=== PATIENT | female | born 1990 | race American Indian/Alaskan Native ===

== ENCOUNTER 2018-06-01 06:29 | Inpatient (IN) | payer MEDICAID ==
[2018-06-01] MEDS ORDERED: PITOCin/NS 20 UNIT/1000ML DRIP 20,000 MILLIUNITS/1,000 ML BAG IV ONE (06:59)
[2018-06-01] MEDS ORDERED: XYLOCAINE 2% INFILTRATI ONE (07:05)
--- NOTE | 2018-06-01 07:22 | History and Physical Report ---
History of Present Illness Date of examination: 06/01/18 Date of admission: 06/01/18 06:29 Chief complaint: Previous C Section in labor History of present illness: Pt is a 27yo BF EDC 06/17/18; EGA 37 5/7 weeks presents to L&D complaining of RUC's q 3-4 mins. She was scheduled for a Repeat C Section with BTL on 06/03/18 but she is currently 10/100/V/+2 and ready to deliver. She received care at [facility] since 11 weeks and course si gnificant for Chronic hypertension controlled with Procardia 30mg QD. records are available and GBS is Negative. Past History Past Medical History: asthma, hypertension (on Procardia 30mg QD) Past Surgical History: section (x2) LEAN SIX SIGMA BLACK BELT History: chlamydia Family/Genetic History: cancer, sickle cell/trait Social history: no significant social history, single - Obstetrical History Expected Date of Delivery: 06/17/18 Actual Gestation: 37 Week(s) 5 Day(s) : 2 Medications and Allergies Allergies Allergy/AdvReac Type Severity Reaction Status Date / Time No Known Allergies Allergy Unverified 06/25/15 16:19 Home Medications Medication Instructions Recorded Confirmed Last Taken Type No Known Home Medications [No 06/25/15 06/25/15 Unknown History Reported Home Medications] Review of Systems All systems: negative - Physical Exam Breasts: Positive: deferred Cardiovascular: Regular rate Lungs: Positive: Clear to auscultation Abdomen: Positive: normal appearance Genitourinary (Female): Positive: normal external genitalia Vagina: Positive: normal moisture Uterus: Positive: enlarged Extremities: Positive: normal - Obstetrical FHR: category 1 Uterine Contraction Monitor Mode: External Cervical Dilatation: 10 Cervical Effacement Percentage: 100 station: +2 Uterine Contraction Pattern: Regular Uterine Tone Measurement Phase: Contraction Uterine Contraction Intensity: Strong/Firm Results All other labs normal. Assessment and Plan - Patient Problems (1) 37 weeks gestation of Onset Date: 06/01/18 Current Visit: Yes Status: Acute Plan to address problem: A: IUP @ 37 5/7 weeks in labor Previous C Section x 2 Chronic hypertension P: Admit to L&D for expectant vaginal delivery (TOLAC) (2) Previous delivery affecting Onset Date: 06/01/18 Current Visit: Yes Status: Acute (3) Hypertension affecting in third trimester Onset Date: 06/01/18 Current Visit: Yes Status: Chronic
--- NOTE | 2018-06-01 07:40 | Procedure Note ---
OB Delivery Note - Delivery Date of Delivery: 06/01/18 Surgeon: MARJORIE BLACK Estimated blood loss: 200cc - Vaginal Delivery presentation: vertex Delivery position: OA Intrapartum events: precipitous labor- <3hr Delivery induction: none Delivery augmentation: rupture of membranes Delivery monitor: external FHT, external uterine Route of delivery: Delivery placenta: spontaneous Delivery cord: 3 umbilical vessels Episiotomy: none Delivery laceration: 2nd degree (perineal) Delivery repair: vicryl Anesthesia: local Delivery comments: Infant delivered OA and placed on Mom's chest for [id number] bonding and delayed cord clamping, cut by Dad - Infant A at 1 minute: 8 at 5 minutes: 9 Infant Gender: Female (2451gms)
[2018-06-01] MEDS ORDERED: PITOCin/NS 30 UNIT/500ML 30 UNITS/500 ML BAG IV SCH (08:00)
[2018-06-01 08:09] LABS: Hematocrit 31.8 % (30.3-42.9); Hemoglobin 9.8 gm/dl (10.1-14.3); Mean Corpuscular HGB Conc 31 % (30-34); Platelet Count 351 K/mm3 (140-440); Red Blood Count 5.55 M/mm3 (3.65-5.03)
[2018-06-01 08:14] LABS: Mean Corpuscular Volume 57 fl (79-97); Red Cell Distribution Width 22.4 % (13.2-15.2)
[2018-06-01] MEDS ORDERED: LACTATED RINGERS 1,000 ML IV SCH (09:00)
[2018-06-01] MEDS ORDERED: BRETHINE SUB-Q PRN (09:00)
[2018-06-01] MEDS ORDERED: NORCO 5/325 PO PRN (09:00)
[2018-06-01] MEDS ORDERED: PHENERGAN PO PRN (09:00)
[2018-06-01] MEDS ORDERED: BRETHINE IVP PRN (09:00)
[2018-06-01] MEDS ORDERED: MINERAL OIL PO PRN (09:00)
[2018-06-01] MEDS ORDERED: PHENERGAN PR PRN (09:00)
[2018-06-01] MEDS ORDERED: ZOFRAN IV PRN (09:00)
[2018-06-01] MEDS ORDERED: PITOCin/NS 20 UNIT/1000ML DRIP 20 UNITS/1,000 ML BAG IV SCH (09:00)
[2018-06-01] MEDS ORDERED: LANSINOH TP PRN (09:00)
[2018-06-01] MEDS ORDERED: TYLENOL PO PRN (09:00)
[2018-06-01] MEDS ORDERED: SODIUM CHLORIDE FLUSH SYRINGE 10 ML IV PRN (09:00)
[2018-06-01] MEDS ORDERED: XYLOCAINE 2% INFILTRATI NR (09:00)
[2018-06-01] MEDS ORDERED: BENADRYL PO PRN (09:00)
[2018-06-01] MEDS ORDERED: TUCKS PAD TP PRN (09:00)
[2018-06-01] MEDS ORDERED: DULCOLAX PR PRN (10:00)
[2018-06-01] MEDS ORDERED: PRENATAL VITAMIN PO SCH (10:00)
[2018-06-01] MEDS: IBUPROFEN PO SCH ×2 (12:29→17:45)
[2018-06-01] MEDS: COLACE PO SCH ×2 (12:29→22:14)
[2018-06-01] MEDS: FEOSOL PO SCH ×2 (12:29→22:13)
[2018-06-01] MEDS: PROCARDIA XL PO SCH (17:02)
[2018-06-01 20:12] LABS: Hematocrit 29.5 % (30.3-42.9); Hemoglobin 9.4 gm/dl (10.1-14.3)
[2018-06-01] MEDS ORDERED: MILK OF MAGNESIA PO PRN (22:00)
[2018-06-02] MEDS: IBUPROFEN PO SCH (00:08)
[2018-06-02] MEDS ORDERED: BOOSTRIX IM ONE (06:00)
[2018-06-02] MEDS: MOTRIN PO SCH ×2 (06:02→12:20)
[2018-06-02] MEDS ORDERED: M-M-R II VACCINE SUB-Q ONE (09:00)
[2018-06-02] MEDS: COLACE PO SCH (09:55)
[2018-06-02] MEDS: PROCARDIA XL PO SCH (09:55)
[2018-06-02] MEDS: FEOSOL PO SCH (09:55)
[2018-06-02 09:58] VITALS: BP 124/74
--- NOTE | 2018-06-02 10:29 | Progress Note ---
Assessment and Plan A: PP Day #1 CHTN Asymptomatic Anemia P: Follow Routine Orders Continue Procardia 30mg PO qd; continue at home Continue FeSO4 325mg PO BID; continue at home Depo Provera 150mg IM x 1 Dose prior to discharge Desires Sterilization Discussed staying one more to monitor BPs (currently normal) with hx of CHTN; patient declines and request to be discharged today RTO in one week for BP check and to discuss sterilization Subjective - Subjective Date of service: 06/02/18 Patient reports: appetite normal, voiding normally, pain well controlled, flatus, bowel movement, ambulating normally, other (Denies all s/s of PIH; taking Procardia 30mg PO qd) [place]: doing well, bottle feeding Objective - Vital Signs Latest vital signs: Vital Signs Temp Pulse Resp BP BP Pulse Ox 06/02/18 08:15 124/74 06/02/18 08:08 98.5 F 80 18 126/78 98 06/02/18 06:02 20 06/02/18 00:30 98.4 F 71 16 114/76 06/01/18 22:08 98.5 F 79 18 125/74 100 06/01/18 16:35 98 F 101 H 20 123/81 06/01/18 12:00 99 F 80 20 125/75 98 Intake and Output 06/01/18 06/02/18 06/02/18 22:59 06:59 14:59 Intake Total 360 240 Output Total 600 Balance -240 240 Intake: Oral 360 Intake, Free Water 240 Output: Urine 600 Void 600 Other: Total, Intake Amount 360 Total, Output Amount 600 # Voids Void 2 1 - Exam Breasts: Present: normal Cardiovascular: Present: Regular rate Lungs: Present: Clear to auscultation, Normal air movement Abdomen: Present: normal appearance, soft, normal bowel sounds Uterus: Present: normal, firm, fundal height below umbilicus - Labs Labs: Abnormal lab results 06/01/18 Range/Units 19:55 Hgb 9.4 L (10.1-14.3) gm/dl Hct 29.5 L (30.3-42.9) %
[2018-06-02] MEDS ORDERED: DEPO-PROVERA (CONTRACEPTION) IM NR (10:30)
--- NOTE | 2018-06-02 10:31 | Discharge Summary ---
Providers - Providers Date of Admission: 06/01/18 06:29 Date of discharge: 06/02/18 Attending physician: CARMELA SEO MD Primary care physician: CARMELA SEO MD Hospitalization Reason for admission: active labor Delivery: Episiotomy: none Laceration: 2nd degree Other procedures: none complications: none Discharge diagnosis: IUP at term delivered baby: female Condition at discharge: Good Disposition: DC-01 TO HOME OR SELFCARE Plan - Provider Discharge Summary Activity: routine, no sex for 6 weeks, no heavy lifting 4 weeks, no strenuous exercise Diet: routine Instructions: routine Additional instructions: [] Smoking cessation referral if applicable(refer to patient education folder for contact #) [] Refer to [facility]'s [facility] Booklet Call your doctor immediately for: * Fever > 100.5 * Heavy vaginal bleeding ( >1 pad per hour) * Severe persistent headache * Shortness of breath * Reddened, hot, painful area to leg or breast * Drainage or odor from incision. * Keep incision clean and dry at all times and follow doctor's instructions regarding bathing/showering - Follow up plan Follow up: CARMELA SEO MD [Primary Care Provider] - 7 Days
== END 2018-06-02 15:45 | disposition home or self-care (01) | DRG 774 ==
LOC: APU 06:29 → LD 06:30 → OB 09:22
PROVIDERS: ADMIT Obstetrics & Gynecology; ATTEND Obstetrics & Gynecology
PROC: 10E0XZZ Delivery of Products of Conception, External Approach (ICD-10-PCS; principal; 2018-06-01)
PROC: 0KQM0ZZ Repair Perineum Muscle, Open Approach (ICD-10-PCS; 2018-06-01)
PROC: 3E0234Z Introduction of Serum, Toxoid and Vaccine into Muscle, Percutaneous Approach (ICD-10-PCS; 2018-06-02)
DX: O34.211 Maternal care for low transverse scar from previous cesarean delivery (principal); O10.92 Unspecified pre-existing hypertension complicating childbirth; J45.909 Unspecified asthma, uncomplicated; O99.52 Diseases of the respiratory system complicating childbirth; Z3A.37 37 weeks gestation of pregnancy; Z37.0 Single live birth; O62.3 Precipitate labor; O70.1 Second degree perineal laceration during delivery; O90.81 Anemia of the puerperium; D64.9 Anemia, unspecified; Z82.3 Family history of stroke; Z83.2 Family history of diseases of the blood and blood-forming organs and certain disorders involving the immune mechanism; Z23 Encounter for immunization
CPT/HCPCS: 36415; 85014; 85018; 85027; 86592; 86850; 86900; 86901; G0378; J1050; J2590